=== PATIENT | female | born 1970 | race Caucasian/White ===

== ENCOUNTER → 2016-10-13 11:44 | Outpatient (CLI) | payer MEDICARE ==
[~2016-10-13 11:44] MED LIST: ASPIRIN EC81 M1 PO; BUPROPION XL150 MG PO; DILAUDID2 MG PO; DILAUDID4 MG PO; HYDROCODONE-APA1 TAB PO; JANUVIA100 MG PO; NEURONTIN 300300 MG PO; PRAVACHOL80 MG PO; ULTRAM50 MG PO; VICTOZA0.6 MG/0.1 SQ; VOLTAREN75 MG PO; ZANTAC150 MG PO; ZOLOFT50 MG PO
[2016-10-13 12:51] LABS: BASOPHILS 0.1 % (0.0-2.0); EOSINOPHILS 2.8 % (0-7); HEMATOCRIT 38.9 % (36.0-48.0); HEMOGLOBIN 12.2 g/dL (12-16); IMMATURE GRANULOCYTES 0.7 % (0-5); LYMPHOCYTES 21.7 % (15-50); MCH 29.1 pg (26.0-34.0); MCHC 31.4 g/dL (31.0-37.0); MCV 92.8 fL (80.0-100.0); MEAN PLATELET VOLUME 9.6 fL (7.4-10.4); MONOCYTES 6.3 % (2-11); NEUTROPHILS 68.4 % (40-80); PLATELET COUNT 329 10x3/uL (130-400); RBC 4.19 10x6/uL (4.00-5.40); RDW 15.1 % (11.5-14.5); WBC 8.2 10x3/uL (4.8-10.8)
[2016-10-13 13:04] LABS: ALBUMIN 3.1 g/dL (3.4-5.0); ALKALINE PHOSPHATASE 61 U/L (46-116); ALT (SGPT) 23 U/L (10-68); APPEARANCE HAZY (CLEAR); BILIRUBIN NEGATIVE (NEGATIVE); C-REACTIVE PROTEIN 3.5 mg/dL (0.0-0.9); CALC OSMOLALITY 278 mosm/kg (275-300); CALCIUM 9.2 mg/dL (8.5-10.1); CARBON DIOXIDE 29.4 mmol/L (21.0-32.0); CHLORIDE - SERUM 104 mmol/L (98-107); COLOR YELLOW (YELLOW); CREATININE - SERUM 0.8 mg/dL (0.6-1.3); GLUCOSE 96 mg/dL (74-106); GLUCOSE NEGATIVE (NEGATIVE); KETONE NEGATIVE (NEGATIVE); LEUKOCYTE ESTERASE 1+ (NEGATIVE); NITRITE NEGATIVE (NEGATIVE); POTASSIUM - SERUM 4.7 mmol/L (3.5-5.1); PROTEIN NEGATIVE (NEGATIVE); PROTEIN - SERUM 7.1 g/dL (6.4-8.2); SODIUM 140 mmol/L (136-145); SPECIFIC GRAVITY 1.015 (1.005-1.020); UREA NITROGEN 13 mg/dL (7-18); UROBILINOGEN NORMAL (NORMAL); eGFR NON AFRICAN AMERICAN 82 mL/min (90-120)
[2016-10-13 13:09] LABS: BACTERIA MODERATE /hpf (NONE SEEN); MUCUS <1+ /lpf (NONE SEEN); RED CELLS - URINE 0-5 /hpf (0-5)
[2016-10-13 14:12] LABS: ERYTHROCYTE SEDIMENTATION RATE 50 mm/hr (0-20)
[2016-11-12 10:20] VITALS: BMI 55.0
== END | disposition home or self-care (01) ==
LOC: D.LAB 11:44
PROVIDERS: Orthopaedic Surgery
DX: T81.9XXA Unspecified complication of procedure, initial encounter (principal); E11.9 Type 2 diabetes mellitus without complications

== ENCOUNTER → 2016-10-22 05:45 | Day surgery (SDC) | payer MEDICARE ==
[2016-10-20 11:08] LABS: BASOPHILS 0.2 % (0.0-2.0); EOSINOPHILS 2.9 % (0-7); HEMATOCRIT 39.8 % (36.0-48.0); HEMOGLOBIN 12.7 g/dL (12-16); IMMATURE GRANULOCYTES 0.5 % (0-5); LYMPHOCYTES 21.6 % (15-50); MCH 29.3 pg (26.0-34.0); MCHC 31.9 g/dL (31.0-37.0); MCV 91.7 fL (80.0-100.0); MEAN PLATELET VOLUME 9.6 fL (7.4-10.4); MONOCYTES 8.2 % (2-11); NEUTROPHILS 66.6 % (40-80); PLATELET COUNT 345 10x3/uL (130-400); RBC 4.34 10x6/uL (4.00-5.40); RDW 14.6 % (11.5-14.5); WBC 8.4 10x3/uL (4.8-10.8)
[2016-10-20 11:18] LABS: ANION GAP 10.6 mmol/L (8-16); CALCIUM 9.5 mg/dL (8.5-10.1); CARBON DIOXIDE 28.3 mmol/L (21.0-32.0); POTASSIUM - SERUM 3.9 mmol/L (3.5-5.1)
[2016-11-12 10:20] VITALS: BMI 55.0
== END | disposition home or self-care (01) ==
LOC: D.OPS 05:45 → D.PAN 15:15 → D.OPS 15:15
PROVIDERS: Anesthesiology
DX: T87.43 Infection of amputation stump, right lower extremity (principal); Z53.9 Procedure and treatment not carried out, unspecified reason

== ENCOUNTER 2016-10-29 09:11 | Day surgery (SDC) | payer MEDICARE ==
[~2016-10-29] VITALS: Ht 157.5 cm; Wt 136.1 kg
[~2016-10-29 09:11] MED LIST changes: -DILAUDID2 MG PO; -DILAUDID4 MG PO
[2016-10-29 09:55] LABS: HEMOGLOBIN 12.7 g/dL (12-16); MCH 29.5 pg (26.0-34.0); MCHC 31.8 g/dL (31.0-37.0); MEAN PLATELET VOLUME 9.2 fL (7.4-10.4); RBC 4.3 10x6/uL (4.00-5.40); RDW 14.6 % (11.5-14.5)
[2016-10-29 10:06] LABS: CALC OSMOLALITY 281 mosm/kg (275-300); CALCIUM 9.5 mg/dL (8.5-10.1); CARBON DIOXIDE 31.3 mmol/L (21.0-32.0); CHLORIDE - SERUM 103 mmol/L (98-107); CREATININE - SERUM 0.8 mg/dL (0.6-1.3); GLUCOSE 102 mg/dL (74-106); POTASSIUM - SERUM 3.8 mmol/L (3.5-5.1); SODIUM 141 mmol/L (136-145); UREA NITROGEN 14 mg/dL (7-18); eGFR NON AFRICAN AMERICAN 82 mL/min (90-120)
[2016-10-29 10:35] VITALS: BP 131/71; Ht 157.5 cm; Wt 136.1 kg
[2016-10-29] MEDS ORDERED: DILAUDID2 MG PO (11:35)
--- NOTE | 2016-10-29 13:53 | NUR ---
1320- IV TO RIGHT AC D/C'D, PT TOLERATED. CATHETER INTACT 1335- DISCHARGE INSTRUCTIONS COMPLETED, PAPERWORK SIGNED. PT VERBALIZED UNDERSTANDING OF INSTRUCTIONS 1340- PT DISCHARGED VIA HER WHEELCHAIR WITH , ASPEN.
--- NOTE | 2016-10-31 10:48 | OP ---
PATIENT NAME: NEFTALI AMAYA MEDICAL RECORD: [id number] :70 LOCATION:D.OPS ADMISSION DATE: SURGEON: ASPEN KELLER MD DATE OF OPERATION: 10/29/2016 Orthopedic Surgery Operative Note PREOPERATIVE DIAGNOSIS: Nonhealing wound of left above-knee amputation stump. POSTOPERATIVE DIAGNOSIS: Nonhealing wound of left above-knee amputation stump. PROCEDURE: 1. Excisional debridement of wound 20 cm to include skin, subcutaneous tissue, portions of fat and fascia. 2. Application of Neox overlay graft. SURGEON: Aspen Keller MD. ANESTHESIA: General. INTRAOPERATIVE COMPLICATIONS: None. SUMMARY OF PATHOLOGIC FINDINGS: The patient has good bleeding tissue, evidently has had several reactions to all things that have been tried. After the purulent material in front of it was taken down, good bleeding tissue was noted. OPERATIVE SUMMARY IN DETAIL: After obtaining the appropriate preoperative orthopedic surgery consent as well as anesthetic consultation, evaluation and clearance, the patient was brought to the operating room and placed on the operating table in supine position. After adequate general endotracheal anesthesia was administered, the patient's left stump was prepped and draped in routine sterile fashion. A combination of scalpel and curettage were utilized to debride the surface of the wound. Copious bulb lavage was utilized as well. The Neox graft was cut in a Juarez's ladder fashion, stretched across a wound and tied in 8 places with Monocryl; it seated nicely into the wound. It was then covered with non-stick dressing, sterile dressings otherwise. The patient was awakened, taken to recovery room in stable condition. All final needle and sponge counts were correct. TRANSINT:[id number] Voice Confirmation ID: [id number] DOCUMENT ID: [id number] ASPEN KELLER MD at 1048 CC: [id number] DICTATION DATE: 10/29/16 1138 CUST[employer] MILL OPERATOR HELPER: 10/29/16 1226 [facility] 10/29/[address] [address]
== END 2016-10-29 13:40 | disposition home or self-care (01) ==
LOC: D.OPS 09:11 → D.PAN 11:20 → D.OPS 11:20 → D.PAN 14:00 → D.OPS 17:00
PROVIDERS: Anesthesiology
DX: T87.44 Infection of amputation stump, left lower extremity (principal)

== ENCOUNTER → 2016-11-05 16:49 | Outpatient (CLI) | payer MEDICARE ==
[2016-10-29 10:35] VITALS: BMI 55.0
[~2016-11-05 16:49] MED LIST changes: +DILAUDID2 MG PO; +DILAUDID4 MG PO
[2016-11-12 17:12] LABS: AEROBE ID Final report (())
== END | disposition home or self-care (01) ==
LOC: D.LABREF 16:49
PROVIDERS: Orthopaedic Surgery
DX: T87.9 Unspecified complications of amputation stump (principal)

== ENCOUNTER 2016-11-12 07:47 | Day surgery (SDC) | payer MEDICARE ==
[~2016-11-12] VITALS: Ht 157.5 cm; Wt 136.1 kg
[~2016-11-12 07:47] MED LIST changes: -DILAUDID4 MG PO
[2016-11-12 10:20] VITALS: BP 123/79; Ht 157.5 cm; Wt 136.1 kg
[2016-11-12 10:32] LABS: HEMATOCRIT 39.1 % (36.0-48.0); HEMOGLOBIN 12.5 g/dL (12-16); MCH 29.3 pg (26.0-34.0); MCV 91.8 fL (80.0-100.0); MEAN PLATELET VOLUME 9.6 fL (7.4-10.4); RBC 4.26 10x6/uL (4.00-5.40); RDW 14.6 % (11.5-14.5); WBC 11.3 10x3/uL (4.8-10.8)
[2016-11-12 10:50] LABS: ANION GAP 11.2 mmol/L (8-16); CALCIUM 9.2 mg/dL (8.5-10.1); CARBON DIOXIDE 27.9 mmol/L (21.0-32.0); CREATININE - SERUM 0.9 mg/dL (0.6-1.3); POTASSIUM - SERUM 4.1 mmol/L (3.5-5.1)
[2016-11-12] MEDS ORDERED: HYDROCODONE-APA1 TAB PO (12:45)
[2016-11-12] MEDS ORDERED: DILAUDID4 MG PO (12:51)
--- NOTE | 2016-11-12 14:01 | NUR ---
1345- PT AND REPORT RECEIVED FROM J LUIS,MC. PT SITTING UP WITH HOB ELEVATED. RIGHT STUMP ELEVATED WITH ICE APPLIED. FULL LIQUIDS AND BLACK COFFEE REQUESTED. VSS. 2L O2 NC, O2 SAT TO REMAIN GREATER THAN 92%. WILL MONITOR.
--- NOTE | 2016-11-12 14:03 | NUR ---
REPORT GIVEN TO MC LY.
--- NOTE | 2016-11-12 17:48 | NUR ---
1430 C/O NAUSA AND PAIN GIVEN ZOFRAM IV AND DILUDID 2MG PO FOR PAIN STATED PAIN 8 ASKING FOR PAIN MED, PT FALLING TO SLLEP
--- NOTE | 2016-11-16 11:07 | OP ---
PATIENT NAME: NEFTALI AMAYA MEDICAL RECORD: [id number] :70 LOCATION:D.OPS ADMISSION DATE: SURGEON: ASPEN KELLER MD DATE OF OPERATION: 11/12/2016 Orthopedic Surgery Operative Note PREOPERATIVE DIAGNOSIS: Nonhealing open wound of a right above-knee amputation stump. POSTOPERATIVE DIAGNOSIS: Nonhealing open wound of a right above-knee amputation stump. PROCEDURE: 1. I&D of right AKA stump, skin, subcutaneous tissue, portions of fat and fascia, greater than 20 cm. 2. Application of Amniox umbilical cord covering. SURGEON: Aspen Keller MD ANESTHESIA: General. INTRAOPERATIVE COMPLICATIONS: None. SUMMARY OF PATHOLOGIC FINDINGS: Essentially, the patient had healed somewhat dramatically since the last Amniox, but unfortunately became detached much too early. OPERATIVE SUMMARY IN DETAIL: After obtaining the appropriate preoperative orthopedic surgery consent as well as anesthetic consultation, evaluation and clearance, the patient was brought to the operating room and placed on the operating table in supine position. After general laryngeal mask was administered, the patient's right AKA stump was prepped and draped in routine sterile fashion. Serial and sequential curette and sharp knife, debridement was done taken back to bleeding tissue about the entire wound, copious irrigation was followed by abrasive type debridement using a Ray-Rosalba. All phlegmon or nonviable appearing tissue was taken down. At this point, the Neox graft 4 x 3 was fenestrated the "Juarez's ladder" technique, stretched over the wound and sewn in with 2-0 Monocryl. Having completed this, sterile dressings were applied. The patient was awakened and taken to the recovery room in stable condition. All final needle and sponge counts were correct. TRANSINT:[id number] Voice Confirmation ID: [id number] DOCUMENT ID: [id number] ASPEN KELLER MD at 1107 CC: [id number] DICTATION DATE: 11/12/161651 CENTRAL COMMUNICATIONS SPECIALIST: 11/12/162020 [facility] 11/12/16 [facility] [address] [place] [address]
== END 2016-11-12 16:00 | disposition home or self-care (01) ==
LOC: D.OPS 07:47 → D.PAN 09:55 → D.OPS 10:00 → D.PAN 10:00 → D.OPS 10:15 → D.PAN 11:30 → D.OPS 11:30
PROVIDERS: Anesthesiology
DX: T87.89 Other complications of amputation stump (principal)

== ENCOUNTER → 2017-01-04 16:54 | Outpatient (CLI) | payer MEDICARE ==
[2016-11-12 10:20] VITALS: BMI 55.0
[~2017-01-04 16:54] MED LIST changes: +DILAUDID4 MG PO
== END | disposition home or self-care (01) ==
LOC: D.LABREF 16:54
DX: T87.89 Other complications of amputation stump (principal); Z89.611 Acquired absence of right leg above knee

== ENCOUNTER 2017-06-12 14:35 | Emergency (ER) | payer MEDICARE ==
[2016-11-12 10:20] VITALS: BMI 55.0
== END 2017-06-12 16:57 | disposition home or self-care (01) ==
LOC: D.ER 14:35
DX: L03.115 Cellulitis of right lower limb (principal); E11.9 Type 2 diabetes mellitus without complications; F17.200 Nicotine dependence, unspecified, uncomplicated

== ENCOUNTER 2017-06-13 19:04 | Inpatient (IN) | payer MEDICARE ==
[~2017-06-13] VITALS: Ht 157.5 cm; Wt 99.8 kg
[2017-06-13 19:57] LABS: BASOPHILS 0.1 % (0-2); EOSINOPHILS 0.8 % (0-7); HEMATOCRIT 43.4 % (36.0-48.0); HEMOGLOBIN 14.1 g/dL (12-16); IMMATURE GRANULOCYTES 0.4 % (0-5); LYMPHOCYTES 19.3 % (15-50); MCH 30.3 pg (26.0-34.0); MCHC 32.5 g/dL (31.0-37.0); MCV 93.1 fL (80.0-100.0); MEAN PLATELET VOLUME 9.9 fL (7.4-10.4); MONOCYTES 6.3 % (2-11); NEUTROPHILS 73.1 % (40-80); PLATELET COUNT 351 10x3/uL (130-400); RBC 4.66 10x6/uL (4.00-5.40); RDW 13.7 % (11.5-14.5); WBC 12.5 10x3/uL (4.8-10.8)
[2017-06-13 20:12] LABS: ALBUMIN 3.3 g/dL (3.4-5.0); ALKALINE PHOSPHATASE 57 U/L (46-116); ALT (SGPT) 29 U/L (10-68); CALC OSMOLALITY 283 mosm/kg (275-300); CALCIUM 9.7 mg/dL (8.5-10.1); CHLORIDE - SERUM 106 mmol/L (98-107); CREATININE - SERUM 0.8 mg/dL (0.6-1.3); GLUCOSE 124 mg/dL (74-106); POTASSIUM - SERUM 4.2 mmol/L (3.5-5.1); PROTEIN - SERUM 7.7 g/dL (6.4-8.2); SODIUM 140 mmol/L (136-145); UREA NITROGEN 24 mg/dL (7-18); eGFR NON AFRICAN AMERICAN 81 mL/min (90-120)
[2017-06-13 20:25] LABS: CREATINE KINASE 29 UL (21-215); TROPONIN-I < 0.017 ng/mL (0.000-0.060)
[2017-06-13 20:55] LABS: C-REACTIVE PROTEIN 2.5 mg/dL (0.0-0.9)
[2017-06-14] MEDS ORDERED: KLONOPIN1 MG PO (03:02)
[2017-06-14] MEDS ORDERED: CELEXA10 MG PO (03:02)
[2017-06-14] MEDS ORDERED: ELIQUIS5 MG PO (03:03)
[2017-06-14 03:19] VITALS: BP 114/87; Ht 157.5 cm; Wt 99.8 kg
[2017-06-14 04:37] VITALS: BP 108/72
--- NOTE | 2017-06-14 07:30 | NUR ---
ASSESSMENT COMPLETED. TELEMERTY SHOWS SR. LEFT HAND AND RIGHT AC SL, PATENT. RIGHT AKA WITH SORES TO STUMPM TRANSFERES TO WHEELCHAIR PER SELF. SON AT BEDSIDE. SR UP WITH CALL LIGHT IN REACH
[2017-06-14 08:00] VITALS: BP 107/71
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
--- NOTE | 2017-06-14 09:47 | NUR ---
NO NEEDS VOICED. CALL LIGHT IN REACH. WILL CONT. PLAN OF CARE.
[2017-06-14 12:00] VITALS: BP 118/75
--- NOTE | 2017-06-14 13:30 | NUR ---
Patient Name: NEFTALI AMAYA Encounter No: [id number] : 1970 Primary Insurance: MEDICARE A & B Anticipated DC Date: Planned Disposition: Home DCP follow-up note: CM MET WITH PT TO DISCUSS ELIQUIS COPAY PT HAS REPORTED INABILITY TO AFFORD THE MEDICATION. CM ASKED PT WHAT HER COPAY IS FOR ELIQUIS. PT REPORTS SHE HAS TO PAY FOR HER CHILDREN'S MEDICATIONS, LISTING HER CHILDREN FOR CM. CM AGAIN ASKED WHAT HER COPAY OF ELIQUIS IS, PT AGAIN SPOKE GENERALLY ABOUT HER BILLS AND THAT SHE HAS TO BUY HER CHILDREN'S MEDICATIONS. CM ASKED PT IF HER COPAY IS MORE THAN $10 FOR ELIQUIS, PT STATED YES. CM HANDED PT THE ELIQUIS $10 COPAY CARD AND INFORMATION, INFORMED PT THAT IF HER INSURANCE COPAY IS MORE THAN $10, SHE CAN USE THE CARD TO PAY ONLY $10 FOR HER MONTHS SUPPLY, THE CARD IS GOOD FOR ONE YEAR ONCE PT HAS ACTIVATED THE CARD AND VERIFIED ELIGIBILITY. CM INFORMED PT TO CONTACT CM IF SHE HAS FURTHER NEEDS. 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 CM TO CONTINUE TO FOLLOW AND ASSIST NEEDED. Matti Lopez, CASE MANAGEMENT
[2017-06-14 16:00] VITALS: BP 124/74
--- NOTE | 2017-06-14 18:07 | NUR ---
UP IN [facility]. NO NEEDS VOICED TELEMERTY SHOWS ST
[2017-06-14 19:00] VITALS: BP 98/74
--- NOTE | 2017-06-14 22:13 | NUR ---
PATIENT IS ALERT, RESTING IN BED AND WATCHING TV. SON IS AT BEDSIDE, IV IS SALINE LOCKED IN LEFT HAND AND ONE IN RIGHT AC SALINE LOCKED WELL. SHE STATES THAT PAIN MEDICATION IS EFFECTIVE. CALL LIGHT IN REACH.
[2017-06-15] VITALS: BP 102/74
[2017-06-15 04:32] VITALS: BP 127/78
[2017-06-15 05:01] LABS: BASOPHILS 0.2 % (0-2); EOSINOPHILS 2.1 % (0-7); HEMATOCRIT 39.2 % (36.0-48.0); HEMOGLOBIN 12.2 g/dL (12-16); IMMATURE GRANULOCYTES 0.5 % (0-5); LYMPHOCYTES 25.1 % (15-50); MCH 29.3 pg (26.0-34.0); MCHC 31.1 g/dL (31.0-37.0); MCV 94.2 fL (80.0-100.0); MEAN PLATELET VOLUME 10.1 fL (7.4-10.4); MONOCYTES 6.5 % (2-11); NEUTROPHILS 65.6 % (40-80); PLATELET COUNT 334 10x3/uL (130-400); RBC 4.16 10x6/uL (4.00-5.40); RDW 13.8 % (11.5-14.5); WBC 11.2 10x3/uL (4.8-10.8)
[2017-06-15 05:30] LABS: ANION GAP 10.4 mmol/L (8-16); CALCIUM 8.9 mg/dL (8.5-10.1); CARBON DIOXIDE 27.9 mmol/L (21.0-32.0); CREATININE - SERUM 0.9 mg/dL (0.6-1.3); POTASSIUM - SERUM 4.3 mmol/L (3.5-5.1)
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
[2017-06-15 08:48] VITALS: BP 125/95
--- NOTE | 2017-06-15 11:25 | NUR ---
FSBS 111. NO INSULIN PER SLIDING SCALE.
--- NOTE | 2017-06-15 11:54 | NUR ---
ELECTRONIC GLUER IN WITH PATIENT PER PATIENT REQUEST. NO DISTRESS.
[2017-06-15 12:04] VITALS: BP 136/93
[2017-06-15] MEDS ORDERED: NICODERM C1 PATCH .1 TRANSDERM (13:18)
[2017-06-15] MEDS ORDERED: ELIQUIS5 MG PO (13:19)
--- NOTE | 2017-06-15 13:50 | NUR ---
Wound care consult: Right aka with 2 scabbed areas. The skin is cool to touch, no odor or edema noted. Pt states "it popped open and bled this morning". It is tender to the touch as per patient. She does not want a dressing on the area because it hurts to have anything on it. Explained that it would protect wounds from germs/infection if it was covered, but she does not want a dressing. Pt has also been seen by ortho at [facility] and Dr. Torrez at [facility] wound clinic in the past 3 years. Discussed the above with Vanita SINGH at Dr. Peterson's office. Will monitor as needed.
--- NOTE | 2017-06-15 14:58 | NUR ---
1430 20 GAUGE IV REMOVED FROM LEFT HAND. CATHETER TIP INTACT. NO BLEEDING FROM SITE. 2X2 GAUZE APPLIED AND SECURED WITH TAPE. 1434 20 GAUGE IV REMOVED FROM RIGHT AC. CATHETER TIP INTACT. NO BLEEDING FROM SITE. 2X2 GAUZE APPLIED AND SECURED WITH TAPE. 1440 DISCHARGE INSTRUCTIONS PROVIDED. PATIENT VERBALIZED UNDERSTANDING OF ALL INSTRUCTIONS PROVIDED. PATIENT STATED SHE WOULD NOT GET THE NICOTINE PATCH BECAUSE MEDICAID WILL NOT PAY FOR IT, SHE AND HER SON STATES IT IS CHEAPER TO SMOKE AND EVENTUALLY . 1445 PATIENT LEFT UNIT VIA HER PERSONAL WHEELCHAIR WITH HER FAMILY. PATIENT IS DISCHARGED TO HOME. NO DISTRESS UPON LEAVING UNIT.
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
[2017-06-16 11:18] LABS: ACLA - IGG AB <9 GPL U/mL (0-14); ACLA - IGM AB 10 MPL U/mL (0-12); ANA REFLEX - DIRECT Negative (Negative)
[2017-06-17 12:18] LABS: PROTEIN S - FREE 56 % (57-157); PROTEIN S - FUNCTIONAL 90 % (63-140); PROTEIN S - TOTAL 115 % (60-150)
[2017-06-17 13:16] LABS: MITOCHONDRIAL ANTIBODY 5.6 Units (0.0-20.0)
== END 2017-06-15 14:50 | disposition home or self-care (01) | DRG 176 ==
LOC: D.ER 19:04 → D.M2 06-14 00:31
PROVIDERS: Emergency Medicine; Family Medicine; ADMIT Family Medicine
DX: I26.99 Other pulmonary embolism without acute cor pulmonale (principal); F17.203 Nicotine dependence unspecified, with withdrawal; E11.65 Type 2 diabetes mellitus with hyperglycemia; E11.40 Type 2 diabetes mellitus with diabetic neuropathy, unspecified; F41.8 Other specified anxiety disorders; Z89.611 Acquired absence of right leg above knee; G54.6 Phantom limb syndrome with pain

== ENCOUNTER 2017-07-06 21:21 | Emergency (ER) | payer MEDICARE ==
[2017-06-14 03:19] VITALS: BMI 40.1
[~2017-07-06 21:21] MED LIST changes: +CELEXA10 MG PO; +ELIQUIS5 MG PO; +KLONOPIN1 MG PO; +NICODERM C1 PATCH .1 TRANSDERM
== END 2017-07-07 | disposition home or self-care (01) ==
LOC: D.ER 21:21
DX: M79.651 Pain in right thigh (principal); E11.9 Type 2 diabetes mellitus without complications; I25.10 Atherosclerotic heart disease of native coronary artery without angina pectoris; Z89.611 Acquired absence of right leg above knee

== ENCOUNTER 2017-07-13 18:01 | Emergency (ER) | payer MEDICARE ==
[2017-06-14 03:19] VITALS: BMI 40.1
== END 2017-07-13 20:18 | disposition home or self-care (01) ==
LOC: D.ER 18:01
DX: G54.6 Phantom limb syndrome with pain (principal); Z89.611 Acquired absence of right leg above knee; E11.9 Type 2 diabetes mellitus without complications

== ENCOUNTER → 2017-07-19 08:55 | Outpatient (CLI) | payer MEDICARE ==
[2017-06-14 03:19] VITALS: BMI 40.1
== END | disposition home or self-care (01) ==
LOC: D.MRI 08:55
DX: M86.8X8 Other osteomyelitis, other site (principal)